=== PATIENT | female | born 1985 | race Two or more races ===

== ENCOUNTER 2020-07-07 16:42 | Emergency (ER) | payer MEDICAID, OTHER ==
[~2020-07-07] VITALS: Ht 160 cm; Wt 72.8 kg
[2020-07-07 16:47] VITALS: BP 130/67
[2020-07-07] MEDS ORDERED: PREN1TAB60 PO (19:07)
[2020-07-07] MEDS ORDERED: ASPI-496 PO (19:08)
== END 2020-07-07 17:58 | disposition home or self-care (01) ==
LOC: ED 17:30
DX: O26.892 Other specified pregnancy related conditions, second trimester (principal); Z3A.18 18 weeks gestation of pregnancy
CPT/HCPCS: 99281

== ENCOUNTER 2020-07-07 18:18 | Outpatient (CLI) | payer MEDICAID, OTHER ==
[~2020-07-07] VITALS: Ht 160 cm; Wt 73.0 kg
[2020-07-07 18:41] VITALS: BP 117/58
[2020-07-07] MEDS ORDERED: PREN1TAB60 PO (19:07)
[2020-07-07] MEDS ORDERED: ASPI-496 PO (19:08)
== END 2020-07-07 19:30 | disposition home or self-care (01) ==
LOC: LDOP 18:18
PROVIDERS: ATTEND Obstetrics & Gynecology
DX: O09.522 Supervision of elderly multigravida, second trimester (principal); Z3A.18 18 weeks gestation of pregnancy
CPT/HCPCS: 84112; 99211; G0463